=== PATIENT | male | born 1995 | race African-American/Black ===

== ENCOUNTER 2020-12-30 21:47 | Emergency (ER) | payer MEDICAID ==
[~2020-12-30] VITALS: Ht 180.3 cm; Wt 63.0 kg
[2020-12-30] MEDS ORDERED: LORAZEPAM 2MG/ML CPJ IV ONE (22:30)
[2020-12-30 23:08] LABS: BASOPHILS % 0.5 % (0.0-2.0); EOSINOPHILS % 0.6 % (0.0-5.0); HEMATOCRIT. 43.3 % (42.0-52.0); HEMOGLOBIN. 15.2 g/dL (14.0-18.0); MEAN CORPUSCULAR HEMOGLOBIN 31.2 pg (28.0-32.0); MEAN CORPUSCULAR VOLUME 88.8 fL (80.0-94.0); MEAN PLATELET VOLUME 6.7 fl (7.4-10.4); MONOCYTES % 7.9 % (2.0-8.0); PLATELET 250 x1000/uL (130-400); RED BLOOD CELL COUNT 4.88 mill/uL (4.7-6.1)
[2020-12-30 23:15] LABS: CHLORIDE 105 mEq/L (98-107)
[2020-12-30 23:19] LABS: ETHANOL BLOOD 173 mg/dL
[2020-12-30 23:22] VITALS: BP 139/79
== END 2020-12-30 23:59 | disposition home or self-care (01) ==
LOC: ER 21:47
DX: F10.10 Alcohol abuse, uncomplicated (principal); R11.10 Vomiting, unspecified; R56.9 Unspecified convulsions; I49.9 Cardiac arrhythmia, unspecified; Y90.6 Blood alcohol level of 120-199 mg/100 ml
CPT/HCPCS: 36415; 80053; 80320; 85025; 93005; 96374; 99284; J2060; G0480

== ENCOUNTER 2021-01-04 15:47 | Emergency (ER) | payer MEDICAID ==
[~2021-01-04] VITALS: Ht 177.8 cm; Wt 82.0 kg
[2021-01-04 16:52] LABS: BASOPHILS % 0.7 % (0.0-2.0); EOSINOPHILS % 1.2 % (0.0-5.0); HEMATOCRIT. 44.4 % (42.0-52.0); HEMOGLOBIN. 15.2 g/dL (14.0-18.0); LYMPHOCYTES % 29.8 % (20.0-50.0); MEAN CORPUSCULAR HEMOGLOBIN 31.1 pg (28.0-32.0); MEAN CORPUSCULAR VOLUME 90.9 fL (80.0-94.0); MEAN PLATELET VOLUME 6.8 fl (7.4-10.4); MONOCYTES % 6.5 % (2.0-8.0); NEUTROPHILS % 61.8 % (40.0-76.0); PLATELET 251 x1000/uL (130-400); RED BLOOD CELL COUNT 4.89 mill/uL (4.7-6.1); RED CELL DISTRIBUTION WIDTH 13.6 % (11.6-14.6)
[2021-01-04 16:58] LABS: CHLORIDE 110 mEq/L (98-107)
[2021-01-04 17:10] LABS: ETHANOL BLOOD 350 mg/dL
[2021-01-04 17:47] VITALS: BP 136/89
== END 2021-01-04 17:48 | disposition home or self-care (01) ==
LOC: ER 15:47
DX: F10.229 Alcohol dependence with intoxication, unspecified (principal); Y90.8 Blood alcohol level of 240 mg/100 ml or more; F41.9 Anxiety disorder, unspecified; F32.9 Major depressive disorder, single episode, unspecified; F20.9 Schizophrenia, unspecified
CPT/HCPCS: 36415; 80053; 80320; 85025; 99283; G0480

== ENCOUNTER 2021-05-22 14:20 | Emergency (ER) | payer MEDICAID ==
[~2021-05-22] VITALS: Ht 177.8 cm; Wt 73.0 kg
[2021-05-22] MEDS ORDERED: FAMOTIDINE 20MG/2ML VIAL IV STA (14:48)
[2021-05-22] MEDS ORDERED: ONDANSETRON HCL 4MG/2ML INJ IV STA (14:48)
[2021-05-22] MEDS ORDERED: MAGNESIUM/ALUMINUM HYDROXIDE/SIMETHICONE 30ML UDC PO STA (14:48)
[2021-05-22] MEDS ORDERED: VISCOUS LIDOCAINE 2% 15 ML UDC PO STA (14:48)
[2021-05-22] MEDS ORDERED: SODIUM CHLORIDE 0.9% 1,000 ML IV ONE (15:00)
[2021-05-22 15:24] LABS: BASOPHILS % 0.4 % (0.0-2.0); EOSINOPHILS % 0.5 % (0.0-5.0); HEMATOCRIT. 42.8 % (42.0-52.0); HEMOGLOBIN. 14.8 g/dL (14.0-18.0); LYMPHOCYTES % 22.7 % (20.0-50.0); MEAN CORPUSCULAR HEMOGLOBIN 29.7 pg (28.0-32.0); MEAN CORPUSCULAR VOLUME 85.8 fL (80.0-94.0); MEAN PLATELET VOLUME 7.3 fl (7.4-10.4); MONOCYTES % 5.9 % (2.0-8.0); NEUTROPHILS % 70.5 % (40.0-76.0); PLATELET 303 x1000/uL (130-400); RED BLOOD CELL COUNT 4.98 mill/uL (4.7-6.1); RED CELL DISTRIBUTION WIDTH 13.1 % (11.6-14.6)
[2021-05-22 15:29] LABS: CHLORIDE 104 mEq/L (98-107)
[2021-05-22 15:31] LABS: PROTHROMBIN TIME 10.9 sec (9.6-11.0)
[2021-05-22 15:33] LABS: ETHANOL BLOOD 180 mg/dL
[2021-05-22 16:13] LABS: CLARITY URINE CLEAR (CLEAR); COLOR URINE DK YELLOW (YELLOW); KETONES URINE TRACE (NEGATIVE); LEUKOCYTE ESTERASE URINE NEGATIVE (NEGATIVE); NITRITE URINE NEGATIVE (NEGATIVE); OCCULT BLOOD URINE NEGATIVE (NEGATIVE); PROTEIN URINE 1+ (NEGATIVE); SPECIFIC GRAVITY URINE 1.031 (1.005-1.030)
[2021-05-22 17:18] LABS: *AMPHETAMINES SCREEN URINE NEGATIVE (NEGATIVE)
[2021-05-22 17:19] LABS: *BARBITURATES SCREEN URINE NEGATIVE (NEGATIVE); *BENZODIAZEPINES SCREEN URINE PRESUMTIVE POSITIVE (NEGATIVE); *COCAINE SCREEN URINE NEGATIVE (NEGATIVE); METHADONE URINE SCREEN NEGATIVE (NEGATIVE); OPIATES URINE SCREEN NEGATIVE (NEGATIVE); PHENCYCLIDINE URINE SCREEN NEGATIVE (NEGATIVE)
[2021-05-22 17:20] LABS: CANNABINOID URINE SCREEN PRESUMTIVE POSITIVE (NEGATIVE)
[2021-05-22] MEDS ORDERED: LORAZEPAM 0.5MG TABLET PO NR (17:30)
[2021-05-22] MEDS ORDERED: ONDA4TAB5 MT (18:21)
[2021-05-22] MEDS ORDERED: HYDR-3782 MT (18:21)
[2021-05-22 18:27] VITALS: BP 146/86
== END 2021-05-22 18:29 | disposition home or self-care (01) ==
LOC: ER 14:20
DX: F10.20 Alcohol dependence, uncomplicated (principal); F41.0 Panic disorder [episodic paroxysmal anxiety]; Y90.6 Blood alcohol level of 120-199 mg/100 ml; F12.90 Cannabis use, unspecified, uncomplicated; E87.6 Hypokalemia; F13.90 Sedative, hypnotic, or anxiolytic use, unspecified, uncomplicated
CPT/HCPCS: 36415; 80053; 80305; 80320; 81003; 83690; 85025; 85610; 93005; 96361; 96374; 96375; 99284; J2405; J3490; G0480

== ENCOUNTER 2023-10-23 17:23 | Emergency (ER) | payer MEDICAID, MEDICARE ==
[~2023-10-23] VITALS: Ht 177.8 cm; Wt 65.0 kg
[~2023-10-23 17:23] MED LIST: HYDR-3782 MT; ONDA4TAB5 MT
[2023-10-23 17:28] VITALS: BP 128/89; PULSE 76; RESP 18; TEMP 98.2; O2SAT 96
== END 2023-10-23 17:36 | disposition left against medical advice (07) ==
LOC: ER 17:23
DX: R53.1 Weakness (principal); Z53.21 Procedure and treatment not carried out due to patient leaving prior to being seen by health care provider
CPT/HCPCS: 99281